=== PATIENT | male | born 1960 | race Caucasian/White ===

== ENCOUNTER 2018-06-25 09:09 | Day surgery (SDC) | payer OTHER ==
[~2018-06-25 09:09] MED LIST: CEFAZOLIN 1 GM INJ; CEFAZOLIN 1 GM/50 ML (PMX) 50 ML IVPB; DESFLURANE 15 MIN; SOD CHLORIDE 0.9% 1,000 ML IV
[2018-06-25 10:29] LABS: ADD MAN DIFF? NO
[2018-06-25 10:32] LABS: BASOPHIL # 0.1 10^3/ul (0.0-0.1); BASOPHILS % 0.8 % (0.0-2.0); EOSINOPHILS # 0.4 10^3/ul (0.0-0.5); EOSINOPHILS % 4.6 % (0.0-7.0); HEMATOCRIT 39.5 % (42.0-52.0); HEMOGLOBIN 13.9 g/dl (14.0-18.0); LYMPHOCYTES # 1.5 10^3/ul (0.8-2.9); LYMPHOCYTES % 18.8 % (15.0-51.0); MEAN CORPUSCULAR HEMOGLOBIN 34.2 pg (29.0-33.0); MEAN CORPUSCULAR HGB CONC 35.2 g/dl (32.0-37.0); MEAN CORPUSCULAR VOLUME 97.1 fl (82.0-101.0); MEAN PLATELET VOLUME 9.8 fl (7.4-10.4); MONOCYTE # 0.7 10^3/ul (0.3-0.9); MONOCYTES % 9.2 % (0.0-11.0); NEUTROPHIL # 5.2 10^3/ul (1.6-7.5); NEUTROPHILS % 66.3 % (39.0-77.0); PLATELET COUNT 200 10^3/UL (140-415); RED BLOOD COUNT 4.07 10^6/ul (4.70-6.10); RED CELL DISTRIBUTION WIDTH 12.6 % (11.5-14.5)
[2018-06-25 10:32] LABS: WHITE BLOOD COUNT 7.8 10^3/ul (4.8-10.8)
[2018-06-25 10:40] LABS: ADD UMIC YES; UR ASCORBIC ACID NEGATIVE (NEGATIVE); UR BILIRUBIN (Dip) NEGATIVE (NEGATIVE); UR BLOOD (Dip) NEGATIVE (NEGATIVE); UR CLARITY SLIGHTLY CLOUDY (CLEAR); UR COLOR YELLOW (YELLOW); UR GLUCOSE (Dip) NEGATIVE (NEGATIVE); UR KETONES (Dip) NEGATIVE (NEGATIVE); UR LEUKOCYTE ESTERASE (Dip) TRACE Leu/ul (NEGATIVE); UR MUCUS FEW /HPF (NONE SEEN); UR NITRITE (Dip) NEGATIVE (NEGATIVE); UR RBC 1 /HPF (0-5); UR TOTAL PROTEIN (Dip) NEGATIVE (NEGATIVE); UR UROBILINOGEN (Dip) NEGATIVE (NEGATIVE); UR WBC 28 /HPF (0-5)
[2018-06-25] MEDS ORDERED: LIDOCAINE 2% (MDV) 20 ML INJ (10:48)
[2018-06-25 10:51] LABS: INR 0.85; PROTIME 11.7 Sec (11.9-14.9); PT RATIO 0.9
[2018-06-25 10:52] LABS: PARTIAL THROMBOPLASTIN TIME 29.8 Sec (23.0-35.0)
[2018-06-25] MEDS ORDERED: ROPIVACAINE 0.5 % 30 ML VIAL (10:54)
[2018-06-25] MEDS ORDERED: METOCLOPRAMIDE 10 MG INJ (10:54)
[2018-06-25] MEDS ORDERED: MIDAZOLAM 1 MG/ML 2 ML INJ (10:54)
[2018-06-25] MEDS ORDERED: ONDANSETRON 4 MG INJ (10:54)
[2018-06-25] MEDS ORDERED: ROCURONIUM 50 MG INJ (10:54)
[2018-06-25] MEDS ORDERED: PROPOFOL 20 ML (10:54)
[2018-06-25] MEDS ORDERED: KETOROLAC 30 MG INJ IV (11:00)
[2018-06-25] MEDS ORDERED: FENTAnyl 50 MCG/ML VIAL IV ×2 (11:00)
[2018-06-25] MEDS ORDERED: DIPHENHYDRAMINE 50 MG INJ IV (11:00)
[2018-06-25] MEDS ORDERED: HYDROmorphONE 1 MG/5 ML IV SYRINGE IV ×3 (11:00)
[2018-06-25] MEDS ORDERED: MEPERIDINE 25 MG INJ IV (11:00)
[2018-06-25] MEDS ORDERED: ONDANSETRON 4 MG INJ IV (11:00)
[2018-06-25] MEDS ORDERED: LABETALOL HCL 20MG INJ IV (11:00)
[2018-06-25] MEDS ORDERED: hydrALAzine 20 MG INJ IV (11:00)
[2018-06-25] MEDS ORDERED: FENTAnyl 50 MCG/ML VIAL (11:10)
[2018-06-25] MEDS ORDERED: GLYCOPYRROLATE 0.4 MG INJ (11:28)
[2018-06-25] MEDS ORDERED: KETOROLAC 30 MG INJ (11:28)
[2018-06-25] MEDS ORDERED: NEOSTIGMINE 3 MG/3 ML SYRINGE (11:28)
[2018-06-25] MEDS: POLYMYXIN/BACITRACIN 1L IRRIG (11:30)
[2018-06-25 11:54] LABS: ALANINE AMINOTRANSFERASE 47 IU/L (13-69); ALBUMIN 3.8 g/dl (3.3-4.9); ALBUMIN/GLOBULIN RATIO 1.46; ALKALINE PHOSPHATASE 88 IU/L (42-121); ANION GAP 4 (5-13); ASPARTATE AMINO TRANSFERASE 35 IU/L (15-46); BILIRUBIN,INDIRECT 0.7 mg/dl (0-1.1); BILIRUBIN,TOTAL 0.7 mg/dl (0.2-1.3); CALCIUM 9.2 mg/dl (8.4-10.2); CARBON DIOXIDE 24 mmol/L (21-31); CHLORIDE 112 mmol/L (97-110); CREATININE 0.72 mg/dl (0.61-1.24); Estimated GFR > 60 mL/min (>60); GLUCOSE 108 mg/dl (70-220); POTASSIUM 3.9 mmol/L (3.5-5.1); SODIUM 140 mmol/L (135-144); TOTAL PROTEIN 6.4 g/dl (6.1-8.1)
[2018-06-25 11:59] LABS: BLOOD UREA NITROGEN 22 mg/dl (7-20)
[2018-06-25] MEDS: BUPIVACAINE 0.25% (MPF) 30 ML INJ (12:14)
[2018-06-25] MEDS ORDERED: SUGAMMADEX SODIUM 200 MG/2 ML VIAL IV (12:32)
[2018-06-25] MEDS: FENTAnyl 50 MCG/ML VIAL IV (12:48)
[2018-06-25] MEDS ORDERED: OXYCODONE/ACETAMINOPHEN (5/325) TAB PO (14:00)
[2018-06-25] MEDS: HYDROCODONE/APAP (5/325) TAB PO (14:25)
== END 2018-06-25 14:29 | disposition home or self-care (01) ==
LOC: SDS 09:09
DX: K40.90 Unilateral inguinal hernia, without obstruction or gangrene, not specified as recurrent (principal); F15.10 Other stimulant abuse, uncomplicated; R00.1 Bradycardia, unspecified
CPT/HCPCS: 49505; 71045; 80053; 81001; 85025; 85610; 85730; 88302; 93005